=== PATIENT | male | born 1970 | race Asian ===

== ENCOUNTER 2020-06-25 06:16 | Day surgery (SDC) | payer MEDICAID ==
[~2020-06-25] VITALS: Ht 172.7 cm; Wt 87.0 kg
[2020-06-25 06:54] VITALS: BP 125/87
[2020-06-25] MEDS ORDERED: CHLORHEXIDINE 15 ML UDC MM STA (06:58)
[2020-06-25] MEDS ORDERED: LACTATED RINGERS 1,000 ML IV SCH (07:00)
[2020-06-25] MEDS ORDERED: CHLORHEXIDINE 15 ML UDC ONE (07:05)
[2020-06-25] MEDS ORDERED: METF500T17 PO (07:24)
[2020-06-25] MEDS ORDERED: FENTANYL PF 100 MCG/2ML ONE (07:51)
[2020-06-25] MEDS ORDERED: KETOROLAC 30 MG/1 ML IVPush PRN (08:00)
[2020-06-25] MEDS ORDERED: METOCLOPRAMIDE 5 MG/ML, 2ML IVPush PRN (08:00)
[2020-06-25] MEDS ORDERED: LABETALOL 5MG/ML, 20ML IV PRN (08:00)
[2020-06-25] MEDS ORDERED: PROMETHAZINE 12.5 MG SUPP PR PRN (08:00)
[2020-06-25] MEDS ORDERED: FENTANYL PF 100 MCG/2ML IV PRN (08:00)
[2020-06-25] MEDS ORDERED: METOPROLOL 1 MG/ML, 5ML IV PRN (08:00)
[2020-06-25] MEDS ORDERED: hydrALAzine 20 MG/ML, 1ML IV PRN (08:00)
[2020-06-25] MEDS ORDERED: EPHEDRINE 50 MG/ML, 1ML IVPush PRN (08:00)
[2020-06-25] MEDS ORDERED: ONDANSETRON 2MG/ML, 2ML IVPush PRN (08:00)
[2020-06-25] MEDS ORDERED: HALOPERIDOL 5 MG/ML IV PRN (08:00)
[2020-06-25] MEDS ORDERED: OXYcodone 5 MG/5 ML ORAL.SOL UDC PO PRN (08:00)
[2020-06-25] MEDS ORDERED: DIPHENHYDRAMINE 50 MG/ML, 1ML IVPush PRN (08:00)
[2020-06-25] MEDS ORDERED: METHOCARBAMOL 1,000 MG in DEXTROSE 5% 100 ML IV PRN (08:00)
[2020-06-25] MEDS ORDERED: ACETAMINOPHEN 325 MG TABLET PO PRN (08:00)
[2020-06-25] MEDS ORDERED: PROPOFOL 10 MG/ML, 50ML ONE (09:30)
== END 2020-06-25 11:30 | disposition home or self-care (01) ==
LOC: OUT 06:16
PROVIDERS: ATTEND Internal Medicine Geriatric Medicine
DX: K62.89 Other specified diseases of anus and rectum (principal); E11.9 Type 2 diabetes mellitus without complications; Z80.0 Family history of malignant neoplasm of digestive organs; Z79.899 Other long term (current) drug therapy; Z20.822 Contact with and (suspected) exposure to COVID-19
CPT/HCPCS: 45391; 82962; 87635; J2704; J3010; J7120

== ENCOUNTER 2021-02-06 10:31 | Inpatient (IN) | payer MEDICAID, OTHER ==
[~2021-02-06] VITALS: Ht 172.7 cm; Wt 92.0 kg
[~2021-02-06 10:31] MED LIST: METF500T17 PO
[2021-02-06] MEDS ORDERED: ALLO100T30 PO (11:23)
[2021-02-06] MEDS ORDERED: ATOR20TA37 PO (11:23)
[2021-02-06] MEDS ORDERED: CHLORHEXIDINE 15 ML UDC PO ONE (11:30)
[2021-02-06] MEDS ORDERED: LACTATED RINGERS 1,000 ML IV SCH (11:30)
[2021-02-06 11:32] VITALS: BP 122/85
[2021-02-06] MEDS ORDERED: hydrALAzine 20 MG/ML, 1ML IV PRN (12:00)
[2021-02-06] MEDS ORDERED: PROMETHAZINE 25 MG/ML, 1ML IVPush PRN (12:00)
[2021-02-06] MEDS ORDERED: LABETALOL 5MG/ML, 20ML IV PRN (12:00)
[2021-02-06] MEDS ORDERED: HYDROmorphone 1 MG/ML, 1ML INJ IVPush PRN (12:00)
[2021-02-06] MEDS ORDERED: HALOPERIDOL 5 MG/ML IV PRN (12:00)
[2021-02-06] MEDS ORDERED: OXYcodone 5 MG/5 ML ORAL.SOL UDC PO PRN (12:00)
[2021-02-06] MEDS ORDERED: MEPERIDINE/PF 25MG/0.5ML IVPush PRN (12:00)
[2021-02-06] MEDS ORDERED: ACETAMINOPHEN 325 MG TABLET PO PRN (12:00)
[2021-02-06] MEDS ORDERED: DIPHENHYDRAMINE 50 MG/ML, 1ML IVPush PRN ×3 (12:00→18:00)
[2021-02-06] MEDS ORDERED: FENTANYL PF 100 MCG/2ML IV PRN (12:00)
[2021-02-06] MEDS ORDERED: MIDAZOLAM 1 MG/ML, 2ML ONE (12:31)
[2021-02-06] MEDS ORDERED: FENTANYL PF 250 MCG/5ML ONE (12:32)
[2021-02-06] MEDS ORDERED: FENTANYL PF 100 MCG/2ML ONE ×2 (13:59→14:33)
[2021-02-06] MEDS ORDERED: ONDANSETRON 2MG/ML, 2ML ONE (14:26)
[2021-02-06] MEDS ORDERED: GLYCOPYRROLATE 0.2MG/1ML, 5ML ONE (14:26)
[2021-02-06] MEDS ORDERED: CEFAZOLIN 1,000 MG ONE (14:26)
[2021-02-06] MEDS ORDERED: PROPOFOL 10 MG/ML, 20ML ONE (14:26)
[2021-02-06] MEDS ORDERED: DEXAMETHASONE 4 MG/ML, 1ML ONE (14:26)
[2021-02-06] MEDS ORDERED: ROCURONIUM 10MG/ML,5ML ONE (14:26)
[2021-02-06] MEDS ORDERED: SUCCINYLCHOLINE 20 MG/ML, 10ML ONE (14:26)
[2021-02-06] MEDS ORDERED: NEOSTIGMINE 1 MG/ML, 10ML ONE (14:26)
[2021-02-06] MEDS ORDERED: OXYcodone IR 5MG TABLET PO PRN (17:30)
[2021-02-06] MEDS ORDERED: DIPHENHYDRAMINE 25 MG CAPSULE PO PRN ×2 (17:30→18:00)
[2021-02-06] MEDS ORDERED: ONDANSETRON 2MG/ML, 2ML IV PRN ×2 (17:30→18:00)
[2021-02-06] MEDS ORDERED: ACETAMINOPHEN 500 MG TABLET PO SCH (17:30)
[2021-02-06] MEDS: OXYcodone IR 5MG TABLET PO PRN ×2 (18:36→22:04)
[2021-02-06] MEDS: ACETAMINOPHEN 500 MG TABLET PO SCH (18:36)
[2021-02-06 18:44] VITALS: BP 165/95
[2021-02-06] MEDS: D5%-0.45NACL+KCL 20MEQ 1,000 ML IV SCH (20:59)
[2021-02-06] MEDS: GABAPENTIN 300 MG CAPSULE PO SCH (20:59)
[2021-02-06] MEDS ORDERED: GABAPENTIN 300 MG CAPSULE PO SCH (21:00)
[2021-02-06] MEDS: INSULIN REGULAR, HUMAN 100 UNIT/ML 3ML VIAL LOW DOSE SS SQ-INSULIN SCH (21:00)
[2021-02-06] MEDS ORDERED: INSULIN REGULAR, HUMAN 100 UNIT/ML 3ML VIAL LOW DOSE SS SQ-INSULIN SCH (21:00)
[2021-02-06 21:59] VITALS: BP 144/94
[2021-02-07] MEDS: ACETAMINOPHEN 500 MG TABLET PO SCH ×4 (00:03→18:16)
[2021-02-07 00:05] VITALS: BP 138/75
[2021-02-07] MEDS: OXYcodone IR 5MG TABLET PO PRN ×3 (01:01→21:07)
[2021-02-07 03:30] VITALS: BP 131/82
[2021-02-07 03:49] LABS: BASOPHILS % (AUTO) 0 % (0-1); EOSINOPHILS % (AUTO) 0 % (1-7); LYMPHOCYTES % (AUTO) 14 % (22-44); MEAN CORPUSCULAR HEMOGLOBIN 30.3 pg (27.5-34.5); MEAN CORPUSCULAR HGB CONC 33.9 g/dL (33.2-36.2); MEAN PLATELET VOLUME 7.3 fL (7.4-10.4); MONOCYTES % (AUTO) 10 % (2-9); NEUTROPHILS % (AUTO) 75 % (42-75); PLATELET COUNT 325 x10^3/uL (130-400); RED BLOOD COUNT 4.63 x10^6/uL (4.38-5.82)
[2021-02-07 03:55] LABS: ALBUMIN 3.9 g/dL (3.4-5.0); ANION GAP 7 mmol/L (5-15); CALCIUM 9.2 mg/dL (8.5-10.1); CHLORIDE 108 mmol/L (98-107)
[2021-02-07 04:04] LABS: CREATININE 0.94 mg/dL (0.7-1.3)
[2021-02-07] MEDS: INSULIN REGULAR, HUMAN 100 UNIT/ML 3ML VIAL LOW DOSE SS SQ-INSULIN SCH ×4 (07:00→22:37)
[2021-02-07] MEDS: D5%-0.45NACL+KCL 20MEQ 1,000 ML IV SCH ×2 (08:18→22:36)
[2021-02-07] MEDS: GABAPENTIN 300 MG CAPSULE PO SCH ×3 (08:31→21:11)
[2021-02-07] MEDS: ENOXAPARIN 40 MG/0.4 ML SQ SCH (08:32)
[2021-02-07] MEDS ORDERED: ENOXAPARIN 40 MG/0.4 ML SQ SCH (09:00)
[2021-02-07 12:08] VITALS: BP 125/74
[2021-02-07 20:00] VITALS: BP 128/77
[2021-02-08] MEDS: ACETAMINOPHEN 500 MG TABLET PO SCH ×4 (00:34→18:20)
[2021-02-08 02:19] VITALS: BP 137/89
[2021-02-08 03:34] LABS: BASOPHILS % (AUTO) 0 % (0-1); EOSINOPHILS % (AUTO) 1 % (1-7); LYMPHOCYTES % (AUTO) 15 % (22-44); MEAN CORPUSCULAR HEMOGLOBIN 30.1 pg (27.5-34.5); MEAN CORPUSCULAR HGB CONC 33.6 g/dL (33.2-36.2); MEAN PLATELET VOLUME 7.5 fL (7.4-10.4); MONOCYTES % (AUTO) 8 % (2-9); NEUTROPHILS % (AUTO) 75 % (42-75); PLATELET COUNT 300 x10^3/uL (130-400); RED BLOOD COUNT 4.55 x10^6/uL (4.38-5.82); RED CELL DISTRIBUTION WIDTH 14.4 % (9.4-14.8)
[2021-02-08 03:45] LABS: ALBUMIN 3.7 g/dL (3.4-5.0); ANION GAP 7 mmol/L (5-15); CALCIUM 8.9 mg/dL (8.5-10.1); CHLORIDE 109 mmol/L (98-107); CREATININE 0.81 mg/dL (0.7-1.3)
[2021-02-08] MEDS: OXYcodone IR 5MG TABLET PO PRN ×5 (03:59→21:24)
[2021-02-08] MEDS: INSULIN REGULAR, HUMAN 100 UNIT/ML 3ML VIAL LOW DOSE SS SQ-INSULIN SCH ×4 (07:00→21:00)
[2021-02-08 08:15] VITALS: BP 123/81
[2021-02-08] MEDS: GABAPENTIN 300 MG CAPSULE PO SCH ×3 (12:31→21:22)
[2021-02-08] MEDS: ENOXAPARIN 40 MG/0.4 ML SQ SCH (12:31)
[2021-02-08] MEDS: D5%-0.45NACL+KCL 20MEQ 1,000 ML IV SCH (12:54)
[2021-02-08 14:38] VITALS: BP 124/82
[2021-02-08 20:33] VITALS: BP 120/83
[2021-02-09] MEDS: ACETAMINOPHEN 500 MG TABLET PO SCH ×3 (00:27→11:55)
[2021-02-09 00:52] VITALS: BP 134/84
[2021-02-09] MEDS: D5%-0.45NACL+KCL 20MEQ 1,000 ML IV SCH (02:37)
[2021-02-09 03:59] LABS: BASOPHILS % (AUTO) 1 % (0-1); EOSINOPHILS % (AUTO) 2 % (1-7); LYMPHOCYTES % (AUTO) 16 % (22-44); MEAN CORPUSCULAR HEMOGLOBIN 30.7 pg (27.5-34.5); MEAN CORPUSCULAR HGB CONC 34.3 g/dL (33.2-36.2); MEAN PLATELET VOLUME 7.5 fL (7.4-10.4); MONOCYTES % (AUTO) 9 % (2-9); NEUTROPHILS % (AUTO) 73 % (42-75); PLATELET COUNT 309 x10^3/uL (130-400); RED BLOOD COUNT 4.53 x10^6/uL (4.38-5.82)
[2021-02-09 04:04] LABS: ALBUMIN 3.2 g/dL (3.4-5.0); ANION GAP 4 mmol/L (5-15); CALCIUM 8.9 mg/dL (8.5-10.1); CHLORIDE 107 mmol/L (98-107)
[2021-02-09 04:12] LABS: CREATININE 0.88 mg/dL (0.7-1.3)
[2021-02-09] MEDS: OXYcodone IR 5MG TABLET PO PRN ×2 (04:58→11:55)
[2021-02-09] MEDS: INSULIN REGULAR, HUMAN 100 UNIT/ML 3ML VIAL LOW DOSE SS SQ-INSULIN SCH ×2 (06:15→11:00)
[2021-02-09 07:11] VITALS: BP 119/81
[2021-02-09] MEDS ORDERED: GABA100C PO (08:38)
[2021-02-09] MEDS ORDERED: CELE200C PO (08:39)
[2021-02-09] MEDS ORDERED: OXYC5TAB2 PO (08:40)
[2021-02-09] MEDS: GABAPENTIN 300 MG CAPSULE PO SCH (09:56)
[2021-02-09 12:05] VITALS: BP 121/86
[2021-02-09] MEDS: ENOXAPARIN 40 MG/0.4 ML SQ SCH (12:30)
== END 2021-02-09 12:12 | disposition home or self-care (01) | DRG 331 ==
LOC: ORIP 10:31 → 4NE 16:32
PROVIDERS: ADMIT Surgery; ATTEND Surgery
PROC: 0DBB0ZZ Excision of Ileum, Open Approach (ICD-10-PCS; principal; 2021-02-06 12:30)
PROC: 0DJD8ZZ Inspection of Lower Intestinal Tract, Via Natural or Artificial Opening Endoscopic (ICD-10-PCS; 2021-02-06 12:30)
DX: Z43.2 Encounter for attention to ileostomy (principal); Z85.048 Personal history of other malignant neoplasm of rectum, rectosigmoid junction, and anus
CPT/HCPCS: 36415; 80048; 82040; 82962; 85025; 86140; 88304; G0378; J0690; J1100; J1650; J1815; J2250; J2405; J2704; J2710; J3010; J0330; J3480; J7120